=== PATIENT | male | born 1970 | race Caucasian/White ===

== ENCOUNTER 2021-11-22 13:31 | Emergency (ER) | payer SELFPAY ==
[~2021-11-22] VITALS: Ht 177.8 cm; Wt 81.6 kg
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
--- NOTE | 2021-11-22 14:01 | NUR ---
DR ROSENTHAL AT BEDSIDE FOR EVAL
--- NOTE | 2021-11-22 14:18 | NUR ---
Patient discharged to home in stable condition, pt refused to sign paperwork.
[2021-11-22 14:19] VITALS: BP 115/74
== END 2021-11-22 14:19 | disposition home or self-care (01) ==
LOC: ER 13:32
DX: Z02.89 Encounter for other administrative examinations (principal); M54.2 Cervicalgia; M54.9 Dorsalgia, unspecified; Z60.2 Problems related to living alone